=== PATIENT | female | born 1960 | race Caucasian/White ===

== ENCOUNTER → 2017-10-14 | Outpatient (CLI) | payer BC ==
[~2017-10-14] MED LIST: BI EST PO; DHEA TABLET1 EACH PO; MELOXICAM7.5 MG PO; MULTIVITAMINS1 EAC7 PO; PROGESTERONE PO; THYROID PO; VITAMIN D1000 UNI1 PO
--- NOTE | 2017-10-14 09:04 | Diagnostic Imaging Report ---
PROCEDURE: C-SPINE AP AND LAT WITH FLEX AND EXT COMPARISON: None. INDICATIONS: POST CERVICAL SPINE SURGERY FINDINGS: C1 through C7 are visualized on the lateral view. Re-demonstration of status post anterior fusion of C5-C7 with metallic plate and transfixing screws which are intact and in adequate alignment. 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 Stable C4/C5 vertebral body disc spacer with screw fixation. There has been minimal interval bony fusion. Flexion and extension views demonstrate no change in alignment. The prevertebral soft tissues are not swollen. CONCLUSION: Postoperative changes as above. Intact hardware with adequate alignment. Dictated by: Vinay Maurer M.D. on 10/14/2017 at 9:14 Electronically approved by: Vinay Maurer M.D. on 10/14/2017 at 9:14
== END ==
LOC: RAD 08:13
PROVIDERS: ATTEND Neurological Surgery
DX: M50.20 Other cervical disc displacement, unspecified cervical region (principal); Z98.1 Arthrodesis status
CPT/HCPCS: 72050

== ENCOUNTER → 2018-01-07 | Day surgery (SDC) | payer BC ==
--- NOTE | 2018-01-06 15:03 | Diagnostic Imaging Report ---
PROCEDURE: Frontal and lateral views of the chest. COMPARISON: Patients [facility], , CHEST 2 VIEWS, 03/19/2017, 10:15. INDICATIONS: PREOPERATIVE CHEST XRAY FOR LEFT FOOT SURGERY FINDINGS: Lines/tubes: None. Lungs: The lungs are well inflated and clear. There is no evidence of pneumonia or pulmonary edema. Pleura: There is no pleural effusion or pneumothorax. Heart and mediastinum: The heart and the mediastinum are normal. Bones: No acute bony abnormality. IMPRESSION: 1. No acute cardiopulmonary abnormalities. Robb Michelle M.D. Dictated by: Robb Michelle M.D. on 01/06/2018 at 15:05 Electronically approved by: Robb Michelle M.D. on 01/06/2018 at 15:05
[~2018-01-07] MED LIST changes: +ACETAMINOPHEN 1000 MG/100 ML IV ONE; +BUPIVACAINE HCL 0.5% INJ 30 ML VIAL INJ ONE; +CEFAZOLIN SOD 1 GM VIAL ONE; +DEXAMETHASONE SOD PHOS INJ 4 MG/ML VIAL ONE; +FENTANYL CITRATE/PF 100MCG/2 ML INJ ONE; +KETOROLAC TROMETHAMINE 30 MG/ML VIAL ONE; +LIDOCAINE HCL 2% LOCAL INJ 5 ML SDV VIAL INJ ONE; +MIDAZOLAM HCL 2 MG/2 ML VIAL ONE; +ONDANSETRON HCL INJ 2 MG/ML VIAL ONE; +PROPOFOL IV EMULSION 10 MG/ML 20 ML VIAL ONE; +SEVOFLURANE INHAL SOLN 250 ML PEN BTL ONE
--- OUTSIDE RECORDS SUMMARY | 2018-01-07 06:16 | XMS REPORT ---
Demographics Address [address] [place] [address] Preferred Language Unknown Marital Status Unknown Rastafarian Affiliation Unknown Race Unknown Additional Race(s) Ethnic Group Unknown Author Author [facility] Address Unknown Phone Unavailable Care Team Providers Care Shorer Name Role Phone LUCERO BULLOCK Unavailable Unavailable CAROL RAMOS Unavailable Unavailable Problems This patient has no known problems. Allergies, Adverse Reactions, Alerts This patient has no known allergies or adverse reactions. Medications This patient has no known medications. Results Test Description Test Time Test Comments Text Results Atomic Results Result Comments CHEST 2 VIEWS [place] [address] Patient Name: DEVAN CLAY MR #: [id number] : 1960 Age/Sex: 57/F Req #: [id number] Adm Physician: Ordered by: LUCERO BULLOCK DPM Report #: [id number] Location: OR Room/Bed: Procedure: [id number] DX/CHEST 2 VIEWS Exam Date: 01/06/18 Exam Time : 1435 REPORT STATUS: Signed PROCEDURE: Frontal and lateral views of the chest. COMPARISON: [facility], CHEST 2 VIEWS, 2016, 10:15. INDICATIONS: PREOPERATIVE CHEST XRAY FOR LEFT FOOT SURGERY FINDINGS: Lines/tubes: None. Lungs: The lungs are well inflated and clear. There is no evidence of pneumonia or pulmonary edema. Pleura: There is no pleural effusion or pneumothorax. Heart and mediastinum: The heart and the mediastinum are normal. Bones: No acute bony abnormality. IMPRESSION: 1. No acute cardiopulmonary abnormalities. Baljit Michelle M.D. Dictated by: Baljit Michelle M.D. on 01/06/2018 at 15:05 Electronically approved by: Baljit Michelle M.D. on 01/06/2018 at 15:05 Dictated By: BALJIT MICHELLE MD 1505 Transcribed By: IVANIA on 01/06/18 1505 COPY TO: LUCERO BULLOCK DPSarah SPINE CERVICAL AP LAT FLEX EXT [place] [address] Patient Name: DEVAN CLAY MR #: [id number] : 1960 Age/Sex: 57/F Req #: [id number] Adm Physician: Ordered by: CAROL RAMOS MD Report #: [id number] Location: [facility] Room/Bed: Procedure: [id number] DX/SPINE CERVICAL AP LAT FLEX EXT Exam Date: 10/14/17 Exam Time: 0830 REPORT STATUS: Signed PROCEDURE : C-SPINE AP AND LAT WITH FLEX AND EXT COMPARISON: None. INDICATIONS: POST CERVICAL SPINE SURGERY FINDINGS: C1 through C7 are visualized on the lateral view. Re-demonstration of status post anterior fusion of C5-C7 with metallic plate and transfixing screws which are intact and in adequate alignment. 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 Stable C4/C5 vertebral body disc spacer with screw fixation. There has been minimal interval bony fusion. Flexion and extension views demonstrate no change in alignment. The prevertebral soft tissues are not swollen. CONCLUSION: Postoperative changes as above. Intact hardware with adequate alignment. Dictated by: Zurdo Aparicio M.D. on at 9:14 Electronically approved by: Zurdo Aparicio M.D. on 2017 at 9:14 Dictated By: ZURDO APARICIO MD 3 Transcribed By: IVANIA on 10/14/17913 COPY TO: CAROL RAMOS MD
--- NOTE | 2018-01-07 08:09 | Operative Report ---
DATE OF PROCEDURE: January 07, 2018 PREOPERATIVE DIAGNOSES 1. 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 2. Left foot neuroma, 3rd interspace. POSTOPERATIVE DIAGNOSES 1. 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 2. Left foot neuroma, 3rd interspace. PLANNED PROCEDURES 1. Left excision of 2nd interspace neuroma. 2. Left excision of 3rd interspace neuroma. ANESTHESIA: General with a postoperative block consisting of 10 mL of 0.5% Marcaine mixed with 1 mL of dexamethasone phosphate. HEMOSTASIS: Pneumatic ankle tourniquet set at 250 mmHg for approximately 20 minutes. MATERIALS: 3-0 Vicryl, 4-0 Prolene. ESTIMATED BLOOD LOSS: Less than 10 mL. PATHOLOGY: None. DETAILS OF PROCEDURE: Patient was seen in the preoperative waiting room where the correct procedure and site was identified. The patient was brought into the operating room and placed on the operating table in the supine position. General anesthesia was initiated at this time. A well-padded pneumatic tourniquet was placed about the patient's left ankle. The left foot and ankle was then scrubbed, prepped and draped in the usual aseptic manner. The left foot, ankle and leg was exsanguinated with an Esmarch bandage, and the pneumatic ankle tourniquet was inflated to 250 mmHg for a total time of approximately 20 minutes. Attention was directed to the dorsal aspect of the patient's left foot where a 3 cm linear incision was made directly over the 3rd interspace. The incision was carried through the subcutaneous tissues them from deeper underlying structures. All vital neurovascular structures were identified, retracted medial and laterally, and all bleeders were cauterized or ligated as deemed necessary. The incision was carried down to the level of deep transverse metatarsal ligament, which was incised to allow for good visualization of the metatarsal nerve and proper digital branches. It should be noted at the bifurcation the neuroma was noted to be enlarged, tortuous and inflamed. The dissection was carried out distally to the level of the proper digital branches and these were transected. The dissection was carried proximally to the proximal level of the midshaft. The neuroma was then pulled distally, cut proximally and removed from the foot and passed off to the back table. The wound was then flushed with copious amounts of sterile saline. Deep tissue was reapproximated with 3-0 Vicryl, subcutaneous tissue with 3-0 Vicryl and skin was closed using a running interlocking stitch with 4-0 Prolene. Attention was directed to the 2nd interspace where the same procedure was performed with no changes or modifications. The same excellent result was achieved. The 2nd interspace neuroma was less tortuous and inflamed than the 3rd interspace neuroma. The incision sites were dressed with Adaptic, 4 x 4's, Kerlix, Mendel wrap, and a postop shoe. The patient tolerated the procedure and anesthesia well. Patient was transferred to the postoperative recovery unit with vital signs stable and vascular status intact. The patient was monitored there for a short period time before being sent home with the following written and oral instructions: 1. Keep the dressing clean, dry and tact. 2. The patient is to remain partial weightbearing in a postop shoe and to avoid excessive ambulation until being seen in the office. 3. The patient was given the office number, and instructed to contact us if any problems should arise. Job#: [id number] SAIRA
== END | disposition home or self-care (01) ==
LOC: OR 06:13
PROVIDERS: ATTEND Podiatrist Foot & Ankle Surgery
DX: G57.62 Lesion of plantar nerve, left lower limb (principal); Z01.810 Encounter for preprocedural cardiovascular examination; Z01.818 Encounter for other preprocedural examination; Z88.1 Allergy status to other antibiotic agents; Z88.2 Allergy status to sulfonamides
CPT/HCPCS: 28080 ×2; 71046; 93005; J0690; J1100; J1885; J2001; J2250; J2405

== ENCOUNTER → 2018-04-24 | Outpatient (CLI) | payer BC ==
[~2018-04-24] MED LIST changes: -ACETAMINOPHEN 1000 MG/100 ML IV ONE; -BUPIVACAINE HCL 0.5% INJ 30 ML VIAL INJ ONE; -CEFAZOLIN SOD 1 GM VIAL ONE; -DEXAMETHASONE SOD PHOS INJ 4 MG/ML VIAL ONE; -FENTANYL CITRATE/PF 100MCG/2 ML INJ ONE; -KETOROLAC TROMETHAMINE 30 MG/ML VIAL ONE; -LIDOCAINE HCL 2% LOCAL INJ 5 ML SDV VIAL INJ ONE; -MIDAZOLAM HCL 2 MG/2 ML VIAL ONE; -ONDANSETRON HCL INJ 2 MG/ML VIAL ONE; -PROPOFOL IV EMULSION 10 MG/ML 20 ML VIAL ONE; -SEVOFLURANE INHAL SOLN 250 ML PEN BTL ONE
--- NOTE | 2018-04-24 09:37 | Diagnostic Imaging Report ---
TECHNIQUE: Magnetic resonance imaging of the LEFT SHOULDER was performed WITHOUT injected contrast. COMPARISON: None available. HISTORY: Pain FINDINGS: MUSCLES AND TENDONS: Rotator Cuff: Tendons: Articular and bursal surface fraying of the supraspinatus tendon. No high-grade tear. Muscles: No focal muscle atrophy. Biceps Tendon: The long head of the biceps tendon is intact and within the intertubercular groove. GLENOHUMERAL JOINT: Glenoid Labrum: Superior labral fraying. No detached tear. Articular Cartilage: No focal defect. AC JOINT AND ACROMION: Mild hypertrophic degenerative changes of the acromioclavicular joint. Mild subacromial spurring. BONE: No focal or infiltrative bone marrow replacing abnormality. No acute fracture. SOFT TISSUES: Subacromial subdeltoid bursal fluid. IMPRESSION: Mild rotator cuff tendinopathy with articular and bursal surface fraying of the supraspinatus. No high-grade tear, retraction, or atrophy. Subacromial subdeltoid bursal fluid may reflect bursitis. Signed by: Dr. Ren Huddleston M.D. on 04/24/2018 9:34 AM
== END ==
LOC: MRI 07:31
PROVIDERS: ATTEND Specialist
DX: M25.512 Pain in left shoulder (principal); M75.02 Adhesive capsulitis of left shoulder; M75.42 Impingement syndrome of left shoulder

== ENCOUNTER → 2018-05-11 | Day surgery (SDC) | payer BC ==
[~2018-05-11] MED LIST changes: +FENTANYL CITRATE/PF 100MCG/2 ML INJ ONE; +LIDOCAINE 2%/ EPINEPHRINE 20ML MDV ONE; +LIDOCAINE HCL 2% LOCAL INJ 5 ML SDV VIAL INJ ONE; +MIDAZOLAM HCL 2 MG/2 ML VIAL ONE; +PROPOFOL IV EMULSION 10 MG/ML 20 ML VIAL ONE; +ROPIVACAINE 0.5% 5 MG/ML 30 ML SDV ONE
[2018-05-11 13:20] VITALS: BP 102/65
--- NOTE | 2018-05-11 17:12 | Operative Report ---
DATE OF PROCEDURE: May 11, 2018 INDUSTRIAL CONTROLLER: Jeremias Valdivia PA-C The patient was brought to the operating room for induction of anesthesia. Throughout this case, my PA's assistance was necessary for retraction of soft tissue and positioning of the extremity. This allows for efficient and technically successful execution of the operation and is considered medically necessary. PREOPERATIVE DIAGNOSIS: Left shoulder adhesive capsulitis. POSTOPERATIVE DIAGNOSIS: Left shoulder adhesive capsulitis. PROCEDURE PERFORMED: Left shoulder manipulation under anesthesia. INDICATIONS: The patient is a 57-year-old lady who has adhesive capsulitis of her left shoulder. She has not progressed with physical therapy. MRI shows no intra-articular pathology. We have discussed the findings and options to now plan on a manipulation under anesthesia. The risks and benefits have been explained. She states she understands and wishes to proceed. DESCRIPTION OF PROCEDURE: The patient was brought to the operating room and given a left shoulder interscalene block. She was then given a MAC anesthetic. A quick manipulation under anesthesia was performed. Audible and palpable and visible release of inferior and anterior capsular strictures was noted. She was put through a full arc of motion. She was transported to the recovery room in stable condition. There was no blood loss or needle counts. Job#: [id number] WILBER
== END | disposition home or self-care (01) ==
LOC: OR 10:21
PROVIDERS: ATTEND Specialist
DX: M75.02 Adhesive capsulitis of left shoulder (principal); Z01.810 Encounter for preprocedural cardiovascular examination; Z88.1 Allergy status to other antibiotic agents; Z88.2 Allergy status to sulfonamides; Z98.1 Arthrodesis status
CPT/HCPCS: 23700; 93005; J2001 ×2; J2250; J2795

== ENCOUNTER 2018-05-29 07:00 | Outpatient (RCR) | payer BC ==
[~2018-05-29 07:00] MED LIST changes: -FENTANYL CITRATE/PF 100MCG/2 ML INJ ONE; -LIDOCAINE 2%/ EPINEPHRINE 20ML MDV ONE; -LIDOCAINE HCL 2% LOCAL INJ 5 ML SDV VIAL INJ ONE; -MIDAZOLAM HCL 2 MG/2 ML VIAL ONE; -PROPOFOL IV EMULSION 10 MG/ML 20 ML VIAL ONE; -ROPIVACAINE 0.5% 5 MG/ML 30 ML SDV ONE
== END 2018-05-31 ==
LOC: PT 07:00
PROVIDERS: ATTEND Specialist
DX: M75.02 Adhesive capsulitis of left shoulder (principal); M25.512 Pain in left shoulder; M25.612 Stiffness of left shoulder, not elsewhere classified; M62.81 Muscle weakness (generalized)

== ENCOUNTER 2018-06-22 07:00 | Outpatient (RCR) | payer BC | END 2018-07-01 | LOC: PT 07:00 | PROVIDERS: ATTEND Specialist | DX: M75.02 Adhesive capsulitis of left shoulder (principal); M25.512 Pain in left shoulder; M25.612 Stiffness of left shoulder, not elsewhere classified; M62.81 Muscle weakness (generalized) ==